=== PATIENT | male | born 1990 | race Two or more races ===

== ENCOUNTER 2018-04-29 10:51 | Inpatient (IN) | payer OTHER ==
[2018-04-29] MEDS ORDERED: ONDANSETRON 4 MG INJ IV (14:00)
[2018-04-29] MEDS ORDERED: NACL 0.9% 3 ML SYG IV (14:00)
[2018-04-29] MEDS ORDERED: ZOLPIDEM 5 MG TAB PO (14:00)
[2018-04-29] MEDS ORDERED: DOCUSATE SODIUM 100 MG CAP PO (14:00)
[2018-04-29] MEDS ORDERED: LORAZEPAM 0.5 MG TAB PO (14:00)
[2018-04-29] MEDS: PANTOPRAZOLE 40 MG INJ IV (14:36)
[2018-04-29] MEDS: DEXTROSE 5%-0.45% NACL 1,000 ML IV ×2 (14:37→22:48)
[2018-04-29 14:50] LABS: ADD MAN DIFF? NO
[2018-04-29 14:55] LABS: WHITE BLOOD COUNT 9.8 10^3/ul (4.8-10.8)
[2018-04-29 14:55] LABS: BASOPHILS % 0.1 % (0.0-2.0); EOSINOPHILS % 0.4 % (0.0-7.0); HEMATOCRIT 35.2 % (42.0-52.0); HEMOGLOBIN 11.8 g/dl (14.0-18.0); LYMPHOCYTES % 19.9 % (15.0-51.0); MEAN CORPUSCULAR HEMOGLOBIN 32.2 pg (29.0-33.0); MEAN CORPUSCULAR HGB CONC 33.5 g/dl (32.0-37.0); MEAN CORPUSCULAR VOLUME 95.9 fl (82.0-101.0); MEAN PLATELET VOLUME 9.8 fl (7.4-10.4); MONOCYTE # 0.9 10^3/ul (0.3-0.9); MONOCYTES % 9.6 % (0.0-11.0); NEUTROPHIL # 6.8 10^3/ul (1.6-7.5); NEUTROPHILS % 69.7 % (39.0-77.0); PLATELET COUNT 191 10^3/UL (140-415); RED BLOOD COUNT 3.67 10^6/ul (4.70-6.10); RED CELL DISTRIBUTION WIDTH 12.9 % (11.5-14.5)
[2018-04-29 15:14] LABS: ANION GAP 10 (8-16); BLOOD UREA NITROGEN 8 mg/dl (7-20); CALCIUM 9.3 mg/dl (8.4-10.2); CARBON DIOXIDE 27 mmol/L (21-31); CHLORIDE 105 mmol/L (97-110); CREATININE 0.73 mg/dl (0.61-1.24); GLUCOSE 79 mg/dl (70-220); MAGNESIUM 1.7 mg/dl (1.7-2.5); POTASSIUM 3.8 mmol/L (3.5-5.1); SODIUM 138 mmol/L (135-144)
[2018-04-29] MEDS: BISACODYL (EC) 5 MG TAB PO (16:39)
[2018-04-29] MEDS: MAGNESIUM CITRATE 300 ML BTL PO (17:45)
[2018-04-29] MEDS: POLYETHYLENE GLYCOL 3350 119 GM POWDER PO (19:01)
[2018-04-29] MEDS: ACETAMINOPHEN 325 MG TAB PO (19:55)
[2018-04-30] MEDS: POLYETHYLENE GLYCOL 3350 119 GM POWDER PO (05:24)
[2018-04-30] MEDS: PANTOPRAZOLE 40 MG INJ IV (05:25)
[2018-04-30] MEDS: DEXTROSE 5%-0.45% NACL 1,000 ML IV ×2 (05:50→13:46)
[2018-04-30 07:06] LABS: ALANINE AMINOTRANSFERASE 31 IU/L (13-69); ALBUMIN 3.9 g/dl (3.3-4.9); ALKALINE PHOSPHATASE 61 IU/L (42-121); ANION GAP 10 (8-16); ASPARTATE AMINO TRANSFERASE 24 IU/L (15-46); BILIRUBIN,INDIRECT 0.7 mg/dl (0-1.1); BILIRUBIN,TOTAL 0.7 mg/dl (0.2-1.3); BLOOD UREA NITROGEN 6 mg/dl (7-20); CALCIUM 9.2 mg/dl (8.4-10.2); CARBON DIOXIDE 29 mmol/L (21-31); CHLORIDE 105 mmol/L (97-110); CREATININE 0.85 mg/dl (0.61-1.24); GLUCOSE 83 mg/dl (70-220); POTASSIUM 4.1 mmol/L (3.5-5.1); SODIUM 140 mmol/L (135-144); TOTAL PROTEIN 6.5 g/dl (6.1-8.1)
[2018-04-30] MEDS: BISACODYL (EC) 5 MG TAB PO (08:15)
[2018-04-30] MEDS: POLYETHYLENE GLYCOL 17 GM PACKET PO (08:16)
[2018-04-30 08:34] LABS: HEMOGLOBIN A1C 5.3 % (0-5.9)
[2018-04-30] MEDS: LIDOCAINE 2% (SDV) 5 ML INJ (13:05)
[2018-04-30] MEDS: PROPOFOL 40 ML (13:05)
[2018-04-30 13:24] LABS: OCCULT BLOOD STOOL NEGATIVE (NEGATIVE)
[2018-04-30] MEDS: PROPOFOL 60 ML (14:31)
== END 2018-04-30 20:15 | disposition left against medical advice (07) | DRG 379 ==
LOC: 6WM 10:51
PROC: 0DBK8ZX Excision of Ascending Colon, Via Natural or Artificial Opening Endoscopic, Diagnostic (ICD-10-PCS; principal; 2018-04-30 13:00)
DX: K92.1 Melena (principal); G43.A0 Cyclical vomiting, in migraine, not intractable; F12.90 Cannabis use, unspecified, uncomplicated; Z90.49 Acquired absence of other specified parts of digestive tract; D64.9 Anemia, unspecified; D12.2 Benign neoplasm of ascending colon
CPT/HCPCS: 80048; 80053; 82270; 83036; 83735; 85025; 88305

== ENCOUNTER 2018-09-25 04:23 | Inpatient (IN) | payer OTHER ==
[2018-09-25] MEDS: morphine 4 MG/ML VIAL IV ×2 (05:52→10:19)
[2018-09-25] MEDS ORDERED: HYDROCODONE/APAP (5/325) TAB PO ×2 (06:00)
[2018-09-25] MEDS ORDERED: NACL 0.9% 3 ML SYG IV (06:00)
[2018-09-25 07:01] LABS: ADD MAN DIFF? NO
[2018-09-25 07:11] LABS: BASOPHILS % 0.2 % (0.0-2.0); EOSINOPHILS # 0.1 10^3/ul (0.0-0.5); EOSINOPHILS % 1.1 % (0.0-7.0); HEMATOCRIT 34.7 % (42.0-52.0); HEMOGLOBIN 11.5 g/dl (14.0-18.0); LYMPHOCYTES # 1.6 10^3/ul (0.8-2.9); LYMPHOCYTES % 28.5 % (15.0-51.0); MEAN CORPUSCULAR HGB CONC 33.1 g/dl (32.0-37.0); MEAN CORPUSCULAR VOLUME 96.7 fl (82.0-101.0); MEAN PLATELET VOLUME 10.2 fl (7.4-10.4); MONOCYTE # 0.4 10^3/ul (0.3-0.9); MONOCYTES % 7.6 % (0.0-11.0); NEUTROPHIL # 3.6 10^3/ul (1.6-7.5); NEUTROPHILS % 62.4 % (39.0-77.0); PLATELET COUNT 192 10^3/UL (140-415); RED BLOOD COUNT 3.59 10^6/ul (4.70-6.10); RED CELL DISTRIBUTION WIDTH 12.8 % (11.5-14.5)
[2018-09-25 07:11] LABS: WHITE BLOOD COUNT 5.7 10^3/ul (4.8-10.8)
[2018-09-25 07:28] LABS: ALANINE AMINOTRANSFERASE 374 IU/L (13-69); ALBUMIN 3.7 g/dl (3.3-4.9); ALBUMIN/GLOBULIN RATIO 1.37; ALKALINE PHOSPHATASE 100 IU/L (42-121); ANION GAP 6 (5-13); ASPARTATE AMINO TRANSFERASE 322 IU/L (15-46); BILIRUBIN,INDIRECT 0.5 mg/dl (0-1.1); BILIRUBIN,TOTAL 0.5 mg/dl (0.2-1.3); BLOOD UREA NITROGEN 8 mg/dl (7-20); CALCIUM 9.1 mg/dl (8.4-10.2); CARBON DIOXIDE 29 mmol/L (21-31); CHLORIDE 102 mmol/L (97-110); CREATININE 0.72 mg/dl (0.61-1.24); Estimated GFR > 60 mL/min (>60); GLUCOSE 114 mg/dl (70-220); PHOSPHORUS 3.6 mg/dl (2.5-4.9); POTASSIUM 3.8 mmol/L (3.5-5.1); SODIUM 137 mmol/L (135-144); TOTAL PROTEIN 6.4 g/dl (6.1-8.1)
[2018-09-25] MEDS: HYDROmorphONE 1 MG/ML SYG IV (08:12)
[2018-09-25] MEDS: ONDANSETRON 4 MG INJ IV ×2 (08:32→12:58)
[2018-09-25] MEDS: FAMOTIDINE 20 MG INJ IV ×2 (08:32→20:52)
[2018-09-25] MEDS ORDERED: TRIMETHOBENZAMIDE 100 MG/ML VIAL IM (15:00)
[2018-09-25] MEDS: SOD CHLORIDE 0.45% 1,000 ML IV (15:05)
[2018-09-25 15:07] LABS: HAAIG REFLEX REFLEX FILED
[2018-09-25] MEDS: METOCLOPRAMIDE 10 MG INJ IV (15:12)
[2018-09-25] MEDS ORDERED: ONDANSETRON 4 MG INJ IV (18:00)
[2018-09-25] MEDS: ONDANSETRON INJ 8 MG in SOD CHLORIDE 0.9% 50 ML IV (18:05)
[2018-09-25] MEDS: BARIUM SULF 2% 450 ML BTL (BERRY SMOOTHIE) PO (18:06)
[2018-09-25 19:36] LABS: HEPATITIS B SURFACE ANTIGEN NEGATIVE (NEGATIVE)
[2018-09-25 19:54] LABS: HEPATITIS B CORE ANTIBODY NEGATIVE (NEGATIVE); HEPATITIS C VIRAL ANTIBODY NEGATIVE (NEGATIVE)
[2018-09-25] MEDS: SOD CHLORIDE 0.9% 100 ML (20:26)
[2018-09-25] MEDS: IOHEXOL 300MG/ML 150 ML BTL (20:27)
[2018-09-25 23:53] LABS: OCCULT BLOOD STOOL NEGATIVE (NEGATIVE)
[2018-09-26] MEDS: SOD CHLORIDE 0.45% 1,000 ML IV (04:30)
[2018-09-26 05:14] LABS: ADD MAN DIFF? NO
[2018-09-26 05:40] LABS: BASOPHILS % 0.4 % (0.0-2.0); EOSINOPHILS # 0.1 10^3/ul (0.0-0.5); EOSINOPHILS % 0.9 % (0.0-7.0); HEMATOCRIT 37.4 % (42.0-52.0); HEMOGLOBIN 12.3 g/dl (14.0-18.0); LYMPHOCYTES % 11.8 % (15.0-51.0); MEAN CORPUSCULAR HEMOGLOBIN 31.7 pg (29.0-33.0); MEAN CORPUSCULAR HGB CONC 32.9 g/dl (32.0-37.0); MEAN CORPUSCULAR VOLUME 96.4 fl (82.0-101.0); MEAN PLATELET VOLUME 10.3 fl (7.4-10.4); MONOCYTE # 0.6 10^3/ul (0.3-0.9); MONOCYTES % 6.9 % (0.0-11.0); NEUTROPHIL # 6.4 10^3/ul (1.6-7.5); NEUTROPHILS % 79.6 % (39.0-77.0); PLATELET COUNT 206 10^3/UL (140-415); RED BLOOD COUNT 3.88 10^6/ul (4.70-6.10); RED CELL DISTRIBUTION WIDTH 12.8 % (11.5-14.5)
[2018-09-26 05:41] LABS: C-REACTIVE PROTEIN < 0.5 mg/dl (0.0-0.9)
[2018-09-26 05:56] LABS: ALANINE AMINOTRANSFERASE 290 IU/L (13-69); ALBUMIN 4.2 g/dl (3.3-4.9); ALKALINE PHOSPHATASE 122 IU/L (42-121); ASPARTATE AMINO TRANSFERASE 117 IU/L (15-46); BILIRUBIN,INDIRECT 0.8 mg/dl (0-1.1); BILIRUBIN,TOTAL 0.8 mg/dl (0.2-1.3); TOTAL PROTEIN 6.8 g/dl (6.1-8.1)
[2018-09-26 06:11] LABS: ANION GAP 8 (5-13); BLOOD UREA NITROGEN 6 mg/dl (7-20); CALCIUM 9.6 mg/dl (8.4-10.2); CARBON DIOXIDE 30 mmol/L (21-31); CHLORIDE 100 mmol/L (97-110); CREATININE 0.77 mg/dl (0.61-1.24); Estimated GFR > 60 mL/min (>60); GLUCOSE 83 mg/dl (70-220); MAGNESIUM 1.8 mg/dl (1.7-2.5); PHOSPHORUS 3.6 mg/dl (2.5-4.9); POTASSIUM 4.3 mmol/L (3.5-5.1); SODIUM 138 mmol/L (135-144)
[2018-09-26 08:29] LABS: ERYTHROCYTE SEDIMENTATION RATE 5 mm/Hr (0-15)
[2018-09-26] MEDS: FAMOTIDINE 20 MG INJ IV (09:05)
[2018-09-26] MEDS: morphine 4 MG/ML VIAL IV (10:34)
[2018-09-28 11:51] LABS: MITOCHONDRIAL TB NEGATIVE (NEGATIVE); SMOOTH MUSCLE AB SCREEN NEGATIVE (NEGATIVE)
[2018-09-28 18:45] LABS: ANA SCREEN POSITIVE (NEGATIVE)
[2018-09-28 20:16] LABS: ANA PATTERN HOMOGENEOUS; ANA TITER 1:40 titer
== END 2018-09-26 13:50 | disposition home or self-care (01) | DRG 379 ==
LOC: MS1 04:23
DX: K92.2 Gastrointestinal hemorrhage, unspecified (principal); K58.2 Mixed irritable bowel syndrome; G43.A0 Cyclical vomiting, in migraine, not intractable; F12.10 Cannabis abuse, uncomplicated; D64.9 Anemia, unspecified; Z90.49 Acquired absence of other specified parts of digestive tract
CPT/HCPCS: 74177; 80048; 80053; 80076; 82270; 83735; 84100; 85025; 85651; 86038; 86140; 86255; 86704; 86709; 86803; 87340

== ENCOUNTER 2018-10-23 08:43 | Emergency (ER) | payer OTHER ==
[2018-10-23] MEDS: FAMOTIDINE 20 MG INJ IV (09:05)
[2018-10-23] MEDS: morphine 4 MG/ML VIAL IV (09:06)
[2018-10-23] MEDS: ONDANSETRON 4 MG INJ IV ×4 (09:06→14:21)
[2018-10-23] MEDS: SOD CHLORIDE 0.9% 1,000 ML IV ×2 (09:11→14:20)
[2018-10-23 09:35] LABS: ADD MAN DIFF? NO
[2018-10-23 09:38] LABS: BASOPHILS % 0.3 % (0.0-2.0); LYMPHOCYTES # 1.3 10^3/ul (0.8-2.9); LYMPHOCYTES % 9.3 % (15.0-51.0); MEAN CORPUSCULAR HEMOGLOBIN 31.3 pg (29.0-33.0); MEAN CORPUSCULAR HGB CONC 32.6 g/dl (32.0-37.0); MEAN PLATELET VOLUME 10.3 fl (7.4-10.4); MONOCYTE # 1.2 10^3/ul (0.3-0.9); MONOCYTES % 8.6 % (0.0-11.0); NEUTROPHIL # 11.7 10^3/ul (1.6-7.5); NEUTROPHILS % 81.2 % (39.0-77.0); PLATELET COUNT 251 10^3/UL (140-415); RED BLOOD COUNT 4.79 10^6/ul (4.70-6.10); RED CELL DISTRIBUTION WIDTH 12.9 % (11.5-14.5)
[2018-10-23 09:38] LABS: WHITE BLOOD COUNT 14.4 10^3/ul (4.8-10.8)
[2018-10-23 09:56] LABS: INR 0.84; PROTIME 11.6 Sec (11.9-14.9); PT RATIO 0.9
[2018-10-23 09:57] LABS: PARTIAL THROMBOPLASTIN TIME 20.9 Sec (23.0-35.0)
[2018-10-23] MEDS: HYDROmorphONE 1 MG/ML SYG IV ×3 (10:03→14:20)
[2018-10-23] MEDS: PANTOPRAZOLE IV 80 MG in SOD CHLORIDE 0.9% 100 ML IVPB (10:07)
[2018-10-23 10:36] LABS: ALANINE AMINOTRANSFERASE 715 IU/L (13-69); ALBUMIN 5.5 g/dl (3.3-4.9); ALBUMIN/GLOBULIN RATIO 1.41; ALKALINE PHOSPHATASE 206 IU/L (42-121); AMYLASE 140 U/L (11-123); ANION GAP 13 (5-13); BILIRUBIN,INDIRECT 0.6 mg/dl (0-1.1); BILIRUBIN,TOTAL 0.6 mg/dl (0.2-1.3); BLOOD UREA NITROGEN 12 mg/dl (7-20); CALCIUM 11.3 mg/dl (8.4-10.2); CARBON DIOXIDE 24 mmol/L (21-31); CHLORIDE 108 mmol/L (97-110); CREATININE 1.22 mg/dl (0.61-1.24); Estimated GFR > 60 mL/min (>60); GLUCOSE 138 mg/dl (70-220); LIPASE 75 U/L (23-300); POTASSIUM 4.4 mmol/L (3.5-5.1); SODIUM 145 mmol/L (135-144); TOTAL PROTEIN 9.4 g/dl (6.1-8.1)
[2018-10-23 10:39] LABS: ETHANOL < 10.0 mg/dl (0-0)
[2018-10-23 10:45] LABS: TROPONIN-I < 0.012 ng/ml (0.000-0.120)
[2018-10-23 10:55] LABS: ASPARTATE AMINO TRANSFERASE 936 IU/L (15-46)
[2018-10-23] MEDS: PANTOPRAZOLE IV 80 MG in SOD CHLORIDE 0.9% 100 ML IV (11:18)
[2018-10-23] MEDS: METOCLOPRAMIDE 10 MG INJ IV (16:27)
== END 2018-10-23 17:00 | disposition home or self-care (01) ==
LOC: E/R 08:43
DX: G43.A0 Cyclical vomiting, in migraine, not intractable (principal); F17.210 Nicotine dependence, cigarettes, uncomplicated
CPT/HCPCS: 36415; 80053; 80307; 82150; 83690; 84484; 85025; 85610; 85730; 86850; 86900; 86901; 93005; 96374; 96375; 96376; 99284-25

== ENCOUNTER 2018-12-22 10:57 | Emergency (ER) | payer OTHER ==
[2018-12-22 11:53] LABS: ADD MAN DIFF? NO
[2018-12-22] MEDS: morphine 4 MG/ML VIAL IV (11:53)
[2018-12-22] MEDS: DIPHENHYDRAMINE 50 MG INJ IV (11:53)
[2018-12-22] MEDS: HALOPERIDOL 5 MG INJ IV (11:54)
[2018-12-22 12:00] LABS: BASOPHIL # 0.1 10^3/ul (0.0-0.1); BASOPHILS % 0.3 % (0.0-2.0); HEMATOCRIT 42.7 % (42.0-52.0); HEMOGLOBIN 13.7 g/dl (14.0-18.0); LYMPHOCYTES # 1.4 10^3/ul (0.8-2.9); LYMPHOCYTES % 7.2 % (15.0-51.0); MEAN CORPUSCULAR HGB CONC 32.1 g/dl (32.0-37.0); MEAN CORPUSCULAR VOLUME 96.6 fl (82.0-101.0); MEAN PLATELET VOLUME 9.6 fl (7.4-10.4); MONOCYTES % 5.2 % (0.0-11.0); NEUTROPHIL # 17.3 10^3/ul (1.6-7.5); NEUTROPHILS % 86.7 % (39.0-77.0); PLATELET COUNT 284 10^3/UL (140-415); RED BLOOD COUNT 4.42 10^6/ul (4.70-6.10); RED CELL DISTRIBUTION WIDTH 13.3 % (11.5-14.5)
[2018-12-22] MEDS: KETAMINE HCL (50 MG/ML) 1ml syringe IV (12:16)
[2018-12-22 12:21] LABS: ALANINE AMINOTRANSFERASE 80 IU/L (13-69); ALBUMIN/GLOBULIN RATIO 1.38; ALKALINE PHOSPHATASE 112 IU/L (42-121); ANION GAP 14 (5-13); ASPARTATE AMINO TRANSFERASE 123 IU/L (15-46); BILIRUBIN,INDIRECT 0.6 mg/dl (0-1.1); BILIRUBIN,TOTAL 0.6 mg/dl (0.2-1.3); BLOOD UREA NITROGEN 10 mg/dl (7-20); CALCIUM 10.9 mg/dl (8.4-10.2); CARBON DIOXIDE 23 mmol/L (21-31); CHLORIDE 109 mmol/L (97-110); CREATININE 0.94 mg/dl (0.61-1.24); Estimated GFR > 60 mL/min (>60); GLUCOSE 139 mg/dl (70-220); LIPASE 54 U/L (23-300); SODIUM 146 mmol/L (135-144); TOTAL PROTEIN 8.6 g/dl (6.1-8.1)
== END 2018-12-22 14:04 | disposition home or self-care (01) ==
LOC: E/R 10:57
DX: R10.9 Unspecified abdominal pain (principal); Z87.19 Personal history of other diseases of the digestive system
CPT/HCPCS: 36415; 74176; 80053; 83690; 85025; 96374; 96375; 99285-25

== ENCOUNTER 2018-12-25 18:08 | Observation (INO) | payer OTHER ==
[2018-12-25] MEDS: ONDANSETRON 4 MG INJ IV (21:49)
[2018-12-25] MEDS: SOD CHLORIDE 0.9% 1,000 ML IV (21:49)
[2018-12-25] MEDS: DICYCLOMINE 20 MG INJ IM (21:50)
[2018-12-25] MEDS: KETAMINE HCL (50 MG/ML) 1ml syringe IV ×2 (21:50→23:12)
[2018-12-25 22:12] LABS: ADD MAN DIFF? NO
[2018-12-25 22:20] LABS: WHITE BLOOD COUNT 14.3 10^3/ul (4.8-10.8)
[2018-12-25 22:20] LABS: BASOPHILS % 0.2 % (0.0-2.0); HEMATOCRIT 35.5 % (42.0-52.0); HEMOGLOBIN 11.9 g/dl (14.0-18.0); LYMPHOCYTES # 0.8 10^3/ul (0.8-2.9); LYMPHOCYTES % 5.8 % (15.0-51.0); MEAN CORPUSCULAR HEMOGLOBIN 31.6 pg (29.0-33.0); MEAN CORPUSCULAR HGB CONC 33.5 g/dl (32.0-37.0); MEAN CORPUSCULAR VOLUME 94.4 fl (82.0-101.0); MEAN PLATELET VOLUME 10.2 fl (7.4-10.4); MONOCYTE # 0.6 10^3/ul (0.3-0.9); MONOCYTES % 4.3 % (0.0-11.0); NEUTROPHIL # 12.7 10^3/ul (1.6-7.5); NEUTROPHILS % 89.3 % (39.0-77.0); POSITIVE DIFF @See below; RED BLOOD COUNT 3.76 10^6/ul (4.70-6.10)
[2018-12-25 22:23] LABS: PLATELET COUNT 199 10^3/UL (140-415)
[2018-12-25 22:34] LABS: ALANINE AMINOTRANSFERASE 33 IU/L (13-69); ALBUMIN 4.7 g/dl (3.3-4.9); ALBUMIN/GLOBULIN RATIO 1.67; ALKALINE PHOSPHATASE 92 IU/L (42-121); ANION GAP 16 (5-13); ASPARTATE AMINO TRANSFERASE 33 IU/L (15-46); BILIRUBIN,INDIRECT 0.7 mg/dl (0-1.1); BILIRUBIN,TOTAL 0.7 mg/dl (0.2-1.3); BLOOD UREA NITROGEN 11 mg/dl (7-20); CALCIUM 9.9 mg/dl (8.4-10.2); CARBON DIOXIDE 23 mmol/L (21-31); CHLORIDE 102 mmol/L (97-110); CREATININE 0.75 mg/dl (0.61-1.24); Estimated GFR > 60 mL/min (>60); GLUCOSE 133 mg/dl (70-220); LIPASE 43 U/L (23-300); POTASSIUM 3.3 mmol/L (3.5-5.1); SODIUM 141 mmol/L (135-144); TOTAL PROTEIN 7.5 g/dl (6.1-8.1)
[2018-12-25] MEDS: KETOROLAC 30 MG INJ IV (22:34)
[2018-12-25] MEDS: DEXTROSE 5%-0.45% NACL 500 ML BAG IV (23:54)
[2018-12-26] MEDS ORDERED: SOD CHLORIDE 0.9% 1,000 ML IV (01:27)
[2018-12-26] MEDS ORDERED: DOCUSATE SODIUM 100 MG CAP PO (01:30)
[2018-12-26] MEDS ORDERED: HYOSCYAMINE 0.125 MG SUBL TAB PO (01:30)
[2018-12-26] MEDS ORDERED: BISACODYL (EC) 5 MG TAB PO (01:30)
[2018-12-26] MEDS ORDERED: NACL 0.9% 3 ML SYG IV (01:30)
[2018-12-26] MEDS ORDERED: ACETAMINOPHEN 325 MG TAB PO (01:30)
[2018-12-26 02:12] LABS: AMPHETAMINE/METHAMPHETAMINE Negative (NEGATIVE); BARBITURATES Negative (NEGATIVE); BENZODIAZEPINES Negative (NEGATIVE); CANNABINOIDS Positive (NEGATIVE); COCAINE Negative (NEGATIVE); OPIATES Negative (NEGATIVE)
[2018-12-26 02:35] LABS: ADD UMIC YES; UR AMORPHOUS CRYSTAL MODERATE /HPF (NONE SEEN); UR ASCORBIC ACID NEGATIVE (NEGATIVE); UR BILIRUBIN (Dip) NEGATIVE (NEGATIVE); UR BLOOD (Dip) NEGATIVE (NEGATIVE); UR CLARITY TURBID (CLEAR); UR COLOR YELLOW (YELLOW); UR GLUCOSE (Dip) NEGATIVE (NEGATIVE); UR KETONES (Dip) 2+ mg/dL (NEGATIVE); UR LEUKOCYTE ESTERASE (Dip) NEGATIVE Leu/ul (NEGATIVE); UR MUCUS FEW /HPF (NONE SEEN); UR NITRITE (Dip) NEGATIVE (NEGATIVE); UR RBC 4 /HPF (0-5); UR SPECIFIC GRAVITY (Dip) 1.021 (1.003-1.030); UR TOTAL PROTEIN (Dip) NEGATIVE (NEGATIVE); UR UROBILINOGEN (Dip) NEGATIVE (NEGATIVE); UR WBC 2 /HPF (0-5)
[2018-12-26] MEDS: ONDANSETRON 4 MG INJ IV (02:48)
[2018-12-26] MEDS: METOCLOPRAMIDE 10 MG INJ IV (03:08)
[2018-12-26] MEDS: HYDROmorphONE 0.5 MG/0.5 ML SYG IV (03:17)
[2018-12-26] MEDS ORDERED: DICYCLOMINE 10 MG CAP PO (03:30)
[2018-12-26] MEDS ORDERED: BISACODYL 10 MG SUPP PR (03:30)
[2018-12-26] MEDS: DEXAMETHASONE 4 MG/ML 1 ML INJ IV (05:15)
[2018-12-26] MEDS: NS + KCL 20 MEQ 1,000 ML IV (05:17)
[2018-12-26] MEDS ORDERED: ONDANSETRON 4 MG INJ IV (05:30)
[2018-12-26] MEDS: DOCUSATE SODIUM 100 MG CAP PO (08:23)
[2018-12-26] MEDS: HYOSCYAMINE 0.125 MG SUBL TAB PO ×2 (09:00→13:00)
[2018-12-26] MEDS: POLYETHYLENE GLYCOL 17 GM PACKET PO (12:00)
[2018-12-26 14:12] LABS: ADD MAN DIFF? NO
[2018-12-26 14:15] LABS: BASOPHILS % 0.1 % (0.0-2.0); HEMATOCRIT 38.1 % (42.0-52.0); HEMOGLOBIN 12.4 g/dl (14.0-18.0); LYMPHOCYTES # 1.1 10^3/ul (0.8-2.9); LYMPHOCYTES % 10.6 % (15.0-51.0); MEAN CORPUSCULAR HEMOGLOBIN 31.2 pg (29.0-33.0); MEAN CORPUSCULAR HGB CONC 32.5 g/dl (32.0-37.0); MEAN CORPUSCULAR VOLUME 95.7 fl (82.0-101.0); MEAN PLATELET VOLUME 9.8 fl (7.4-10.4); MONOCYTE # 0.4 10^3/ul (0.3-0.9); MONOCYTES % 4.2 % (0.0-11.0); NEUTROPHIL # 8.7 10^3/ul (1.6-7.5); NEUTROPHILS % 84.5 % (39.0-77.0); PLATELET COUNT 226 10^3/UL (140-415); RED BLOOD COUNT 3.98 10^6/ul (4.70-6.10); RED CELL DISTRIBUTION WIDTH 13.4 % (11.5-14.5)
[2018-12-26 14:15] LABS: WHITE BLOOD COUNT 10.3 10^3/ul (4.8-10.8)
[2018-12-26 14:32] LABS: ALANINE AMINOTRANSFERASE 21 IU/L (13-69); ALBUMIN 4.8 g/dl (3.3-4.9); ALKALINE PHOSPHATASE 74 IU/L (42-121); ANION GAP 14 (5-13); ASPARTATE AMINO TRANSFERASE 34 IU/L (15-46); BILIRUBIN,INDIRECT 0.9 mg/dl (0-1.1); BILIRUBIN,TOTAL 0.9 mg/dl (0.2-1.3); BLOOD UREA NITROGEN 8 mg/dl (7-20); CALCIUM 9.9 mg/dl (8.4-10.2); CARBON DIOXIDE 26 mmol/L (21-31); CHLORIDE 100 mmol/L (97-110); CREATININE 0.72 mg/dl (0.61-1.24); Estimated GFR > 60 mL/min (>60); GLUCOSE 92 mg/dl (70-220); SODIUM 140 mmol/L (135-144); TOTAL PROTEIN 7.8 g/dl (6.1-8.1)
== END 2018-12-26 15:00 | disposition home or self-care (01) ==
LOC: E/R 18:08 → 2NE 12-26 01:28
DX: G43.A0 Cyclical vomiting, in migraine, not intractable (principal); F12.10 Cannabis abuse, uncomplicated; K58.9 Irritable bowel syndrome, unspecified; D64.9 Anemia, unspecified
CPT/HCPCS: 36415; 74018; 80053; 80307; 81001; 83690; 83735; 85025; 93005; 96372; 96374; 96375; 99285-25

== ENCOUNTER 2019-01-28 09:19 | Emergency (ER) | payer OTHER ==
[2019-01-28] MEDS: ONDANSETRON 4 MG INJ IV (11:13)
[2019-01-28] MEDS: KETOROLAC 30 MG INJ IV (11:14)
[2019-01-28] MEDS: SOD CHLORIDE 0.9% 500 ML IV (11:14)
[2019-01-28 12:03] LABS: ADD MAN DIFF? NO
[2019-01-28 12:09] LABS: WHITE BLOOD COUNT 11.7 10^3/ul (4.8-10.8)
[2019-01-28 12:09] LABS: BASOPHILS % 0.2 % (0.0-2.0); HEMATOCRIT 38.1 % (42.0-52.0); HEMOGLOBIN 12.7 g/dl (14.0-18.0); LYMPHOCYTES % 8.7 % (15.0-51.0); MEAN CORPUSCULAR HEMOGLOBIN 32.1 pg (29.0-33.0); MEAN CORPUSCULAR HGB CONC 33.3 g/dl (32.0-37.0); MEAN CORPUSCULAR VOLUME 96.2 fl (82.0-101.0); MEAN PLATELET VOLUME 10.1 fl (7.4-10.4); MONOCYTE # 0.5 10^3/ul (0.3-0.9); MONOCYTES % 4.5 % (0.0-11.0); NEUTROPHIL # 10.1 10^3/ul (1.6-7.5); NEUTROPHILS % 86.3 % (39.0-77.0); PLATELET COUNT 216 10^3/UL (140-415); RED BLOOD COUNT 3.96 10^6/ul (4.70-6.10); RED CELL DISTRIBUTION WIDTH 13.4 % (11.5-14.5)
[2019-01-28 12:25] LABS: ALANINE AMINOTRANSFERASE 38 IU/L (13-69); ALBUMIN 4.7 g/dl (3.3-4.9); ALBUMIN/GLOBULIN RATIO 1.56; ALKALINE PHOSPHATASE 92 IU/L (42-121); ANION GAP 12 (5-13); ASPARTATE AMINO TRANSFERASE 31 IU/L (15-46); BILIRUBIN,INDIRECT 1.1 mg/dl (0-1.1); BILIRUBIN,TOTAL 1.1 mg/dl (0.2-1.3); BLOOD UREA NITROGEN 24 mg/dl (7-20); CALCIUM 9.7 mg/dl (8.4-10.2); CARBON DIOXIDE 23 mmol/L (21-31); CHLORIDE 114 mmol/L (97-110); CREATININE 1.15 mg/dl (0.61-1.24); Estimated GFR > 60 mL/min (>60); GLUCOSE 108 mg/dl (70-220); LIPASE 32 U/L (23-300); POTASSIUM 4.1 mmol/L (3.5-5.1); SODIUM 149 mmol/L (135-144); TOTAL PROTEIN 7.7 g/dl (6.1-8.1)
== END 2019-01-28 14:00 | disposition home or self-care (01) ==
LOC: FTE 09:19
DX: G43.A0 Cyclical vomiting, in migraine, not intractable (principal); Z87.891 Personal history of nicotine dependence
CPT/HCPCS: 80053; 83690; 85025; 96361; 96374; 96375; 99284-25

== ENCOUNTER 2019-04-18 12:47 | Emergency (ER) | payer OTHER ==
[2019-04-18] MEDS: ONDANSETRON 4 MG INJ IV ×2 (13:26→14:27)
[2019-04-18] MEDS: SOD CHLORIDE 0.9% 1,000 ML IV (13:26)
[2019-04-18] MEDS: morphine 4 MG/ML VIAL IV ×2 (13:27→14:27)
[2019-04-18] MEDS ORDERED: SOD CHLORIDE 0.9% 250 ML IV (13:30)
[2019-04-18 13:40] LABS: ADD MAN DIFF? NO
[2019-04-18 13:44] LABS: WHITE BLOOD COUNT 15.5 10^3/ul (4.8-10.8)
[2019-04-18 13:44] LABS: BASOPHILS % 0.2 % (0.0-2.0); HEMATOCRIT 43.2 % (42.0-52.0); HEMOGLOBIN 13.8 g/dl (14.0-18.0); LYMPHOCYTES # 0.7 10^3/ul (0.8-2.9); LYMPHOCYTES % 4.2 % (15.0-51.0); MEAN CORPUSCULAR HEMOGLOBIN 30.7 pg (29.0-33.0); MEAN CORPUSCULAR HGB CONC 31.9 g/dl (32.0-37.0); MEAN PLATELET VOLUME 10.4 fl (7.4-10.4); MONOCYTE # 1.2 10^3/ul (0.3-0.9); MONOCYTES % 7.9 % (0.0-11.0); NEUTROPHIL # 13.5 10^3/ul (1.6-7.5); NEUTROPHILS % 87.2 % (39.0-77.0); PLATELET COUNT 244 10^3/UL (140-415); RED CELL DISTRIBUTION WIDTH 13.7 % (11.5-14.5)
[2019-04-18 14:02] LABS: ALANINE AMINOTRANSFERASE 36 IU/L (13-69); ALBUMIN 4.9 g/dl (3.3-4.9); ALKALINE PHOSPHATASE 101 IU/L (42-121); ANION GAP 9 (5-13); ASPARTATE AMINO TRANSFERASE 32 IU/L (15-46); BILIRUBIN,INDIRECT 0.6 mg/dl (0-1.1); BILIRUBIN,TOTAL 0.6 mg/dl (0.2-1.3); BLOOD UREA NITROGEN 11 mg/dl (7-20); CALCIUM 10.6 mg/dl (8.4-10.2); CARBON DIOXIDE 24 mmol/L (21-31); CHLORIDE 113 mmol/L (97-110); CREATININE 0.91 mg/dl (0.61-1.24); Estimated GFR > 60 mL/min (>60); GLUCOSE 134 mg/dl (70-220); POTASSIUM 4.1 mmol/L (3.5-5.1); SODIUM 146 mmol/L (135-144); TOTAL PROTEIN 8.4 g/dl (6.1-8.1)
[2019-04-18] MEDS: CIPROFLOXACIN 500 MG TAB PO (14:27)
[2019-04-18] MEDS: metroNIDAZOLE 500 MG TAB PO (14:27)
[2019-04-18 16:03] LABS: LIPASE 109 U/L (23-300)
[2019-04-18 16:15] LABS: ADD UMIC YES; UR ASCORBIC ACID NEGATIVE (NEGATIVE); UR BILIRUBIN (Dip) NEGATIVE (NEGATIVE); UR BLOOD (Dip) NEGATIVE (NEGATIVE); UR CLARITY CLEAR (CLEAR); UR COLOR YELLOW (YELLOW); UR GLUCOSE (Dip) NEGATIVE (NEGATIVE); UR KETONES (Dip) 1+ mg/dL (NEGATIVE); UR LEUKOCYTE ESTERASE (Dip) NEGATIVE Leu/ul (NEGATIVE); UR MUCUS FEW /HPF (NONE SEEN); UR NITRITE (Dip) NEGATIVE (NEGATIVE); UR RBC 31 /HPF (0-5); UR SPECIFIC GRAVITY (Dip) 1.024 (1.003-1.030); UR TOTAL PROTEIN (Dip) 2+ mg/dl (NEGATIVE); UR UROBILINOGEN (Dip) NEGATIVE (NEGATIVE); UR WBC 1 /HPF (0-5)
== END 2019-04-18 17:18 | disposition home or self-care (01) ==
LOC: FTE 12:47
DX: K57.92 Diverticulitis of intestine, part unspecified, without perforation or abscess without bleeding (principal); F17.210 Nicotine dependence, cigarettes, uncomplicated
CPT/HCPCS: 74018; 80053; 81001; 83690; 85025; 93005; 96374; 96375; 96376; 99285-25